=== PATIENT | male | born 1955 | race Caucasian/White ===

== ENCOUNTER 2022-04-19 05:09 | Day surgery (SDC) | payer OTHER ==
[2022-04-12 16:11] LABS: BASOPHILS % (AUTO) 0.5 % (0-1); EOSINOPHILS # (AUTO) 0.2 X10'3 (0-0.9); EOSINOPHILS % (AUTO) 2.7 % (0-6); LYMPHOCYTES % (AUTO) 13.6 % (21-51); MEAN CORPUSCULAR HEMOGLOBIN 32.4 PG (27.0-31.0); MEAN CORPUSCULAR HGB CONC 33.9 g/dL (33.0-36.5); MEAN CORPUSCULAR VOLUME 95.8 FL (78-98); MEAN PLATELET VOLUME 10.8 FL (7.4-10.4); MONOCYTES # (AUTO) 0.4 X10'3 (0-0.9); MONOCYTES % (AUTO) 5.6 % (2-12); NEUTROPHILS # (AUTO) 5.9 X10'3 (1.8-7.7); NEUTROPHILS % (AUTO) 77.6 % (42-75); PRE OP HEMATOCRIT 46.3 % (42.0-52.0); PRE OP HEMOGLOBIN 15.7 g/dL (14.0-17.9); PRE OP PLATELET COUNT 176 X10'3 (140-440); RED BLOOD COUNT 4.83 X10'6 (4.70-6.10); RED CELL DISTRIBUTION WIDTH 13.3 % (11.5-14.5)
[2022-04-12 16:26] LABS: ALBUMIN 3.9 G/DL (3.4-5.0); ALBUMIN/GLOBULIN RATIO 1.4 (1.1-1.5); ALKALINE PHOSPHATASE 53 IU/L (46-116); BLOOD UREA NITROGEN 13 MG/DL (7-18); BUN/CREATININE RATIO 15.3 (5.4-32.0); CALCIUM 9.3 MG/DL (8.5-10.1); CHLORIDE 106 MMOL/L (99-107); CREATININE 0.85 MG/DL (0.60-1.10); PRE OP ALT 32 U/L (30-65); PRE OP ANION GAP 9 (8-16); PRE OP AST 24 U/L (10-37); PRE OP BILIRUB, TOTAL 0.5 MG/DL (0.0-1.0); PRE OP GLUCOSE 134 MG/DL (70-104); PRE OP POTASSIUM 3.5 MMOL/L (3.4-5.1); PRE OP SODIUM 143 MMOL/L (135-145); TOTAL PROTEIN 6.7 G/DL (6.4-8.2); eGFR 90 ML/MIN
[~2022-04-19] VITALS: Ht 180.3 cm; Wt 90.7 kg
[2022-04-19] VITALS (16 sets, daily range): BP systolic 94–133; BP diastolic 62–85
[~2022-04-19 05:09] MED LIST: LEVO150T8 PO; LOSA50TA64 PO; PRAV20TA4 PO
[2022-04-19] MEDS ORDERED: acetaminophen 325mg tablet PO ONE (05:30)
[2022-04-19] MEDS ORDERED: famotidine 20mg tablet PO ONE (05:30)
[2022-04-19] MEDS ORDERED: tranexamic acid inj. 1,000 MG in normal saline IV soln 100ML IV ONE (05:30)
[2022-04-19] MEDS ORDERED: oxyCODONE SR 10mg (sust. release) tab -2 tabs (20mg) PO ONE (05:30)
[2022-04-19] MEDS ORDERED: celeCOXIB 100mg capsule PO ONE (05:30)
[2022-04-19] MEDS ORDERED: metoclopramide 5 mg/ml inj IV ONE (05:30)
[2022-04-19] MEDS ORDERED: gabapentin 300mg capsule PO ONE (05:30)
[2022-04-19] MEDS ORDERED: vancomycin 1,500 MG in NS 300ml IV soln IV ONE (05:30)
[2022-04-19] MEDS: ringers solution, lacted 1,000 ML IV SCH ×2 (06:46→10:22)
[2022-04-19] MEDS ORDERED: cloNIDine hcl/PF 100mcg/ml inj ONE (06:47)
[2022-04-19] MEDS ORDERED: epiNEPHrine 1 mg/ml inj ONE (06:47)
[2022-04-19] MEDS ORDERED: vancomycin 1,000mg inj ONE (06:47)
[2022-04-19] MEDS ORDERED: ROPIVAcaine 0.5% (5mg/ml) 30ml vial ONE ×2 (06:48→08:50)
[2022-04-19] MEDS ORDERED: ceFAZolin inj. 2,000 MG in dextrose 5%-water 100 ML IV ONE (07:00)
--- NOTE | 2022-04-19 07:00 | NUR ---
PT STATES HE BATHED PER JOINT PROTOCOL RECOMMENDATIONS AND READ THE JOINT REPLACEMENT BOOKLET, DR NINO DOES NOT HAVE HIS PATIENTS USE BACTROBAN OINTMENT. PT DENIES DECREASED SENSATION IN BILAT LE'S. Addendum: 04/19/22 at 0815 by Cristel Thompson RN Amended: Links added.
[2022-04-19] MEDS ORDERED: naloxone 0.4 mg/ml inj IV PRN (07:05)
[2022-04-19] MEDS ORDERED: HYDROcodone/acetaminophen 10/325mg tab PO PRN ×2 (07:05)
[2022-04-19] MEDS ORDERED: bisacodyl 10mg suppository rectal RC PRN (07:05)
[2022-04-19] MEDS ORDERED: HYDROmorphone 1 mg/ml syringe IV PRN (07:05)
[2022-04-19] MEDS ORDERED: ondansetron/PF 4mg/2ml inj IV PRN ×2 (07:05→08:25)
[2022-04-19] MEDS ORDERED: acetaminophen 325mg tablet PO PRN (07:05)
[2022-04-19] MEDS ORDERED: magnesium hydroxide 30ml (MOM) UD suspension PO PRN (07:05)
[2022-04-19] MEDS ORDERED: HYDROmorphone inj. 0.5 MG/0.5 ML DISP.SYRIN IV PRN (07:05)
[2022-04-19] MEDS ORDERED: diphenhydrAMINE 25mg capsule PO PRN ×2 (07:05)
[2022-04-19] MEDS ORDERED: fentaNYL/PF 50MCG/1 ML 2ML syringe ONE (07:23)
[2022-04-19] MEDS ORDERED: midazolam 1 mg/ML 2ml injection ONE ×2 (07:23)
[2022-04-19] MEDS ORDERED: multivitamins, therapeutics tablet PO SCH (08:00)
[2022-04-19] MEDS ORDERED: gabapentin 300mg capsule PO SCH ×2 (08:00→21:00)
[2022-04-19] MEDS ORDERED: losartan 50mg tablet PO SCH (08:00)
[2022-04-19] MEDS ORDERED: ascorbic acid 500mg tablet PO SCH ×2 (08:00→20:00)
[2022-04-19] MEDS ORDERED: ePHEDrine 50MG/ML INJ. ONE (08:08)
[2022-04-19] MEDS ORDERED: morphine 2 MG/ML inj. syringe IV PRN (08:25)
[2022-04-19] MEDS ORDERED: ringers solution, lacted 1,000 ML IV SCH (08:25)
[2022-04-19] MEDS ORDERED: meperidine/PF 25mg/ml syringe IV PRN ×3 (08:25)
[2022-04-19] MEDS ORDERED: ROPIVAcaine 0.2%/PF PUMP/bolus 545 ML ADDCANAL SCH (08:25)
[2022-04-19] MEDS ORDERED: morphine 4 MG/ML inj SYRINge IV PRN (08:25)
[2022-04-19] MEDS ORDERED: proCHLORperazine 10 MG/2 ml inj IV PRN (08:25)
[2022-04-19] MEDS ORDERED: ROPIVAcaine 0.2% (10 MG/5 ML) BOLUS INJECTION ADDCANAL PRN (08:25)
[2022-04-19] MEDS ORDERED: aspirin 325mg tablet PO SCH (08:30)
--- NOTE | 2022-04-19 09:04 | NUR ---
Received from OR via HOSPITAL BED, accompanied by Anesthesiologist WAYNE and report given by Anesthesiolgist. PT ARRIVES AWAKE, AAOX4, NO COMPLAINTS OF PAIN ON RA WNL, VSS. LEFT KNEE BRACE IN PLACE, MIKE BLINKING GREEN, ICE IN PLACE, POSITIVE CMS, WITH DIMINSHED SENSATION TO LEFT LOWER EXTREMITY UP TO L-2. Addendum: 04/19/22 at 0926 by Wayen Koo RN Amended: Links added.
--- NOTE | 2022-04-19 09:44 | NUR ---
PT BROUGHT TO ROOM 360B WITHOUT INCIDENT. RECEIVING RN AT BEDSIDE. BED IN LOW POSITION. Addendum: 04/19/22 at 1003 by Wayne Koo RN Amended: Links added.
[2022-04-19] MEDS ORDERED: potassium cl 20mEq in 1/2 NS 1,000 ML IV SCH (12:00)
[2022-04-19] MEDS ORDERED: tranexamic acid inj. 900 MG in normal saline 100ml IV soln 91 ML IV ONE (13:00)
--- NOTE | 2022-04-19 19:00 | NUR ---
received report from Jeromy FELIX. Pt has d/c orders cleared by Pt, but was retaining urine after 100cc void amout 500cc retained. Call to Dr.T. De La Torre regarding retention of urine and he said as long as pt does not feel bloated or full he wrote dc orders and can be dc'd.
--- NOTE | 2022-04-19 19:30 | NUR ---
Pt may be dc's home wheeled outside with all belongings.
--- NOTE | 2022-04-19 19:48 | NUR ---
belongings sent home with pt and reviewed instructions about ON-q dc and dia dc. and showering.
[2022-04-19] MEDS ORDERED: VANCOMYCIN 1,500MG inj. 1,500 MG in normal saline 500ml IV soln 300 ML IV ONE (20:00)
[2022-04-19] MEDS ORDERED: sennosides 8.6mg tablet PO SCH (21:00)
[2022-04-20] MEDS ORDERED: levoTHYROXINE 75mcg tablet PO SCH (08:00)
[2022-04-20] MEDS ORDERED: losartan 50mg tablet PO SCH (08:00)
[2022-04-20] MEDS ORDERED: multivitamins, therapeutics tablet PO SCH (08:00)
[2022-04-20] MEDS ORDERED: atorvastatin 10mg tablet PO SCH (08:00)
[2022-04-20] MEDS ORDERED: aspirin 325mg tablet PO SCH (08:30)
--- NOTE | 2022-04-20 10:40 | NUR ---
Joint surgery consult: Pt s/p L knee surgery discharged prior to RD visit per EMR. Written high protein diet ed w/ RD contact information mailed to pt home address provided in EMR. Addendum: 04/20/22 at [address] Amended: Links added.
[2022-04-20] MEDS ORDERED: celeCOXIB 100mg capsule PO SCH (20:00)
== END 2022-04-19 19:30 | disposition home or self-care (01) ==
LOC: PAS 05:09 → SUR 3N 07:05 → PAS 19:30
PROVIDERS: ATTEND Orthopaedic Surgery
DX: M17.12 Unilateral primary osteoarthritis, left knee (principal); I10 Essential (primary) hypertension; G47.30 Sleep apnea, unspecified; G89.18 Other acute postprocedural pain; Z87.891 Personal history of nicotine dependence; Z88.0 Allergy status to penicillin; Z87.442 Personal history of urinary calculi; Z85.828 Personal history of other malignant neoplasm of skin; Z98.890 Other specified postprocedural states; Z79.899 Other long term (current) drug therapy
CPT/HCPCS: 27447; 36415; 64448; 73560; 80053; 82948; 85025; 86885; 86900; 86901; 87081; 97110; 97161; C1713; C1776; J0171; J0735; J2250; J2765; J2795; J3010; J3370; J3490; J7030; J7040; J7120; Z7506; Z7508; Z7512; 97530; A4215; A7000; G0378